=== PATIENT | female | born 1945 | race Caucasian/White ===

== ENCOUNTER 2021-12-20 16:31 | Emergency (ER) | payer MEDICARE, BC ==
[~2021-12-20] VITALS: Ht 170.2 cm; Wt 104.0 kg
[2021-12-20] MEDS ORDERED: SODIUM CHLORIDE 0.9% 500 ML IV ONE (17:00)
[2021-12-20 19:36] LABS: BASOPHILS % 0.6 % (0.0-2.0); EOSINOPHILS % 2.2 % (0.0-5.0); HEMATOCRIT. 43.9 % (36.0-48.0); HEMOGLOBIN. 14.4 g/dL (12.0-16.0); LYMPHOCYTES % 25.2 % (20.0-50.0); MEAN CORPUSCULAR HEMOGLOBIN 29.9 pg (28.0-32.0); MEAN CORPUSCULAR VOLUME 91.3 fL (81.0-99.0); MEAN PLATELET VOLUME 10.2 fl (7.4-10.4); MONOCYTES % 6.9 % (2.0-8.0); NEUTROPHILS % 65.1 % (40.0-76.0); PLATELET 191 x1000/uL (130-400); RED BLOOD CELL COUNT 4.81 mill/uL (4.2-5.4); RED CELL DISTRIBUTION WIDTH 13.5 % (11.6-14.6)
[2021-12-20 19:40] LABS: CHLORIDE 110 mEq/L (98-107)
[2021-12-20 22:00] VITALS: BP 146/65
== END 2021-12-20 22:08 | disposition home or self-care (01) ==
LOC: ER 16:31
DX: R55 Syncope and collapse (principal); I45.2 Bifascicular block; I10 Essential (primary) hypertension; I25.10 Atherosclerotic heart disease of native coronary artery without angina pectoris
CPT/HCPCS: 36415; 71045; 80053; 83880; 84484; 85025; 93005; 96360; 96361; 99285; J7040